=== PATIENT | female | born 1955 | race African-American/Black ===

== ENCOUNTER 2018-11-01 07:26 | Emergency (ER) | payer OTHER ==
[2018-11-01] MEDS: ONDANSETRON (ODT) 4 MG TAB ODT (09:20)
== END 2018-11-01 09:26 | disposition home or self-care (01) ==
LOC: FTE 07:26
DX: R05 Cough (principal); I10 Essential (primary) hypertension; Z91.040 Latex allergy status
CPT/HCPCS: 71046; 99283-25